=== PATIENT | female | born 1955 | race Caucasian/White ===

== ENCOUNTER 2020-05-20 09:18 | Outpatient (CLI) | payer OTHER, SELFPAY | END 2020-05-20 09:19 | disposition home or self-care (01) | LOC: ANHCOVIDVC 09:19 | PROVIDERS: PCP Urology | DX: Z23 Encounter for immunization (principal) | CPT/HCPCS: 0001A; 91300 ==

== ENCOUNTER 2020-06-10 09:17 | Outpatient (CLI) | payer OTHER, SELFPAY | END 2020-06-10 09:18 | disposition home or self-care (01) | LOC: ANHCOVIDVC 09:17 | PROVIDERS: PCP Urology | DX: Z23 Encounter for immunization (principal) | CPT/HCPCS: 0002A; 91300 ==